=== PATIENT | male | born 1990 | race American Indian/Alaskan Native ===

== ENCOUNTER → 2022-12-02 16:29 | Outpatient (CLI) | payer BC, SELFPAY ==
[2022-12-02 18:02] LABS: Hepatitis B Surface Antigen NEGATIVE s/c (NEGATIVE)
[2022-12-02 18:28] LABS: HIV 1 & 2 Ab/Ag 4th Gen Combo NEGATIVE (NEGATIVE); Hep C Virus Ab w/Reflex Quant NEGATIVE s/c (NEGATIVE)
[2022-12-02 21:19] LABS: Urine N gonorrhoeae NOT DETECTED
[2022-12-02 21:34] LABS: Urine Chlamydia NOT DETECTED
[2022-12-04 03:09] LABS: RPR Screen Non Reactive (Non Reactive)
[2022-12-04 08:31] LABS: HSV 2 IGG AB < 0.91 index (0.00-0.90); HSV1IGG < 0.91 index (0.00-0.90)
== END ==
PROVIDERS: Referring Provider Nurse Practitioner Family; Visit Provider Nurse Practitioner Family
DX: N48.9 Disorder of penis, unspecified (principal)
CPT/HCPCS: 36415; 86592; 86695; 86696; 86803; 87340; 87389; 87491; 87591